=== PATIENT | male | born 1960 | race Caucasian/White ===

== ENCOUNTER → 2016-08-24 | Outpatient (CLI) | payer SELFPAY ==
--- NOTE | 2016-08-24 11:28 | US ---
EXAM DESCRIPTION: US ABDOMEN CLINICAL HISTORY: EPIGASTRIC ABD PAIN COMPARISON: None Available. TECHNIQUE: Complete abdominal ultrasound was performed utilizing grayscale imaging. [employer] static images were saved to the patient's medical record. FINDINGS: The liver is echogenic, but normal in size. No evidence of mass. The gallbladder is unremarkable. Common bowel duct measures 5 mm in diameter. The pancreas is poorly visualized. The pancreatic body is unremarkable. The spleen is normal in size. The right and left kidney measures 10.8 and 11.2 cm respectively. There is a complex left lower pole renal cyst with a thick septation. This cyst measures approximately 3.3 x 2.2 cm in diameter. The abdominal aorta and IVC are unremarkable. IMPRESSION: There is a complex cyst seen within the lower pole of left kidney with a thick internal septation which may be calcified. MRI is suggested with contrast for further evaluation. No evidence of cholelithiasis or cholecystitis at this time. Electronically signed by: Adan Evangelista MD 08/24/2016 11:26
== END ==
LOC: US 10:13
PROVIDERS: ATTEND Family Medicine
DX: R10.13 Epigastric pain (principal); N28.1 Cyst of kidney, acquired

== ENCOUNTER → 2016-08-24 | Outpatient (CLI) | payer BC, SELFPAY | LOC: LAB.NP 10:18 | PROVIDERS: ATTEND Family Medicine | DX: R10.13 Epigastric pain (principal); R41.81 Age-related cognitive decline; E03.9 Hypothyroidism, unspecified ==

== ENCOUNTER → 2016-09-22 | Outpatient (CLI) | payer BC, SELFPAY ==
--- NOTE | 2016-10-13 14:57 | CT ---
EXAM DESCRIPTION: CT SINUSES WITHOUT IV CONTRAST CLINICAL HISTORY: 56 y/o M, DEVIATED NASAL SEPTUM COMPARISON: October 04, 2015. TECHNIQUE: Thin slice non contrasted imaging of the sinuses was performed. The data was reformatted for interpretation. FINDINGS: Near complete opacification of the frontal sinuses. Patchy ethmoid air cell disease noted bilaterally. The sphenoid sinuses are clear. Minimal mucosal thickening noted within bilateral maxillary sinuses, left greater than right. Bilateral ostiomeatal units are opacified due to mucosal thickening. No polyposis noted on today's study. The nasal septum demonstrates no evidence of a contact point. There is minimal rightward deviation. The mucosa of the nasopharynx and incompletely imaged oropharynx is unremarkable. Orbits and globes are unremarkable. IMPRESSION: Minimal deviation of the posterior septum to the right. No contact point noted. The sinus disease as described above most pronounced within bilateral frontal sinuses in which there is near complete opacification. The mucosal thickening is slightly worse when compared to prior from September 2015. Electronically signed by: Adan Evangelista MD 09/23/2016 09:03
== END | disposition home or self-care (01) ==
LOC: CT 15:09
PROVIDERS: ATTEND Obstetrics & Gynecology
DX: R09.81 Nasal congestion (principal); J34.2 Deviated nasal septum; J32.4 Chronic pansinusitis; J32.1 Chronic frontal sinusitis; J34.3 Hypertrophy of nasal turbinates

== ENCOUNTER → 2016-11-19 | Outpatient (CLI) | payer BC | LOC: LAB.O 08:00 | PROVIDERS: ATTEND Family Medicine | DX: N28.1 Cyst of kidney, acquired (principal); Z01.812 Encounter for preprocedural laboratory examination ==

== ENCOUNTER → 2016-11-19 | Outpatient (CLI) | payer SELFPAY ==
--- NOTE | 2016-11-19 16:20 | CT ---
EXAM DESCRIPTION: Abdomen/Pelvis w/wo Contrast CLINICAL HISTORY: 56 years,Male,LEFT RENAL MASS COMPARISON: None TECHNIQUE: Multiple axial tomographic images were obtained of the abdomen and pelvis with and without IV contrast without oral contrast. Then reconstructed in sagittal and coronal planes. FINDINGS: The kidneys demonstrate a 3.1 cm cyst superior pole left kidney with a thin calcified septation otherwise simple. The adrenal glands are unremarkable. The spleen is unremarkable. The liver is unremarkable. The pancreas is unremarkable. The gallbladder is unremarkable. The included bowel is is unremarkable. The appendix is not seen. There is no free air, free fluid, masses, or significant adenopathy. Surrounding soft tissues and bony elements unremarkable. IMPRESSION: Benign-appearing cyst superior pole left kidney otherwise unremarkable CT of the abdomen and the pelvis. Electronically signed by: Niranjan Trinh MD 11/19/2016 4:19 PM CDT
== END | disposition home or self-care (01) ==
LOC: LAB.O 10:51
PROVIDERS: ATTEND Urology
DX: N28.1 Cyst of kidney, acquired (principal)

== ENCOUNTER → 2018-05-20 | Outpatient (CLI) | payer OTHER | LOC: LAB.O 08:42 | PROVIDERS: ATTEND Internal Medicine | DX: J45.909 Unspecified asthma, uncomplicated (principal) ==

== ENCOUNTER → 2020-03-04 | Outpatient (CLI) | payer OTHER ==
--- NOTE | 2020-03-04 16:24 | RAD ---
EXAM: Scoliosis Series CLINICAL HISTORY: SCOLIOSIS COMPARISON STUDY: None TECHNICAL: 2 views of the thoracic and lumbar spine. FINDINGS: The thoracic spine has a curvature convex to the left inferiorly predominantly the result of the lumbar scoliosis. Scoliotic curvature of the lumbar spine centered at L3 and measures 32 degrees. There is a subluxation of L3 on L4. The L3 vertebral body is subluxed to the right 17 mm. There is asymmetric degenerative disc changes at all levels of the lumbar spine. There are degenerative changes at the lower thoracic levels. The visible chest and abdomen show no acute abnormality. IMPRESSION: 32 degree dextroscoliosis centered at L3. 17 mm right lateral subluxation of L3. Electronically signed by: Fernando Keenan MD 03/04/2020 2:13 PM CDT
== END ==
LOC: RAD 12:51
PROVIDERS: ATTEND Nurse Practitioner Family
DX: M41.86 Other forms of scoliosis, lumbar region (principal); M51.26 Other intervertebral disc displacement, lumbar region